=== PATIENT | female | born 1995 | race Caucasian/White ===

== ENCOUNTER 2024-07-04 20:55 | Emergency (ER) | payer MEDICAID ==
[~2024-07-04] VITALS: Ht 170.2 cm; Wt 122.7 kg
[2024-07-04 20:57] VITALS: TEMP 99.1
[2024-07-04 21:32] LABS: APPEARANCE,URINE HAZY (CLEAR); BILIRUBIN,URINE NEGATIVE (NEGATIVE); COLOR,URINE DARK YELLOW (YELLOW); GLUCOSE, URINE (UA) NEGATIVE (NEGATIVE); KETONES,URINE NEGATIVE (NEGATIVE); LEUKOCYTE ESTERASE ,URINE LARGE (NEGATIVE); NITRATE,URINE POSITIVE (NEGATIVE); OCCULT BLOOD,URINE NEGATIVE (NEGATIVE); PH,URINE 5.5 (5.0-8.0); PROTEIN,URINE 30-70 mg/dL (NEGATIVE); SPECIFIC GRAVITIY, URINE 1.025 (1.003-1.030)
[2024-07-04 21:35] LABS: BACTERIA,URINE Many /HPF (None Seen); RBC,URINE 0-2 /HPF (0-2); SQUAMOUS EPITHELIAL CELL,UR Few /LPF (None Seen); WBC,URINE 51-100 /HPF (0-5)
[2024-07-04] MEDS: LIDOCAINE/PF 1% 2 ML VIAL IM ONE (23:27)
[2024-07-04] MEDS: CefTRIAXone SODIUM 1 GM/VIAL IM ONE (23:27)
[2024-07-04 23:31] VITALS: BP 130/75; PULSE 98; RESP 18; O2SAT 100
[2024-07-04] MEDS: KETOROLAC TROMETHAMINE 60 MG/2 ML VIAL IM ONE (23:40)
[2024-07-05] MEDS ORDERED: IBUP-1492 PO (00:23)
[2024-07-05] MEDS ORDERED: CEPH-558 PO (00:23)
== END 2024-07-05 00:32 | disposition home or self-care (01) ==
LOC: EMS 20:55
DX: N39.0 Urinary tract infection, site not specified (principal); F12.90 Cannabis use, unspecified, uncomplicated; Z87.440 Personal history of urinary (tract) infections
CPT/HCPCS: 99284; 81001; 84703; 87077; 87086; 96372; J0696; J1885; J3490; 87186